=== PATIENT | female | born 1980 | race Caucasian/White ===

== ENCOUNTER 2018-10-18 05:52 | Inpatient (IN) | payer OTHER ==
[2018-10-18] MEDS ORDERED: METHYLERGONOVINE 0.2 MG INJ IM ×2 (07:00→16:30)
[2018-10-18] MEDS ORDERED: PROPOFOL 200 MG INJ (07:00)
[2018-10-18] MEDS ORDERED: OXYTOCIN 30 UNITS/LR 500 ML IV ×3 (07:00→16:30)
[2018-10-18] MEDS ORDERED: MISOPROSTOL 200 MCG TAB PR ×2 (07:00→16:30)
[2018-10-18] MEDS ORDERED: OXYTOCIN 30 UNITS/LR 500 ML BAG IV (07:00)
[2018-10-18] MEDS ORDERED: CARBOPROST 250 MCG INJ IM ×2 (07:00→16:30)
[2018-10-18] MEDS ORDERED: HYDROmorphONE 0.5 MG/0.5 ML SYG IV ×2 (07:30)
[2018-10-18] MEDS ORDERED: DIPHENHYDRAMINE 50 MG INJ IV ×2 (07:30)
[2018-10-18] MEDS ORDERED: HYDROmorphONE 1 MG/5 ML IV SYRINGE IV ×3 (07:30)
[2018-10-18] MEDS ORDERED: FENTAnyl 50 MCG/ML VIAL IV ×2 (07:30)
[2018-10-18] MEDS ORDERED: ONDANSETRON 4 MG INJ IV (07:30)
[2018-10-18] MEDS ORDERED: KETOROLAC 30 MG INJ IV (07:30)
[2018-10-18] MEDS ORDERED: ZOLPIDEM 5 MG TAB PO (07:30)
[2018-10-18] MEDS ORDERED: NALOXONE (0.4 MG/ML) INJ IV (07:30)
[2018-10-18] MEDS ORDERED: CEFAZOLIN 2 GM/50 ML (PMX) 50 ML IVPB (08:00)
[2018-10-18 08:13] LABS: ADD MAN DIFF? NO
[2018-10-18 08:25] LABS: BASOPHILS % 0.4 % (0.0-2.0); EOSINOPHILS # 0.1 10^3/ul (0.0-0.5); EOSINOPHILS % 0.9 % (0.0-7.0); HEMATOCRIT 34.4 % (37.0-47.0); HEMOGLOBIN 11.2 g/dl (12.0-16.0); LYMPHOCYTES # 1.4 10^3/ul (0.8-2.9); MEAN CORPUSCULAR HEMOGLOBIN 30.4 pg (29.0-33.0); MEAN CORPUSCULAR HGB CONC 32.6 g/dl (32.0-37.0); MEAN CORPUSCULAR VOLUME 93.5 fl (82.0-101.0); MEAN PLATELET VOLUME 10.5 fl (7.4-10.4); MONOCYTE # 0.6 10^3/ul (0.3-0.9); MONOCYTES % 7.9 % (0.0-11.0); NEUTROPHIL # 5.9 10^3/ul (1.6-7.5); NEUTROPHILS % 72.7 % (39.0-77.0); PLATELET COUNT 165 10^3/UL (140-415); RED BLOOD COUNT 3.68 10^6/ul (4.20-5.40); RED CELL DISTRIBUTION WIDTH 12.2 % (11.5-14.5)
[2018-10-18 08:25] LABS: WHITE BLOOD COUNT 8.1 10^3/ul (4.8-10.8)
[2018-10-18] MEDS ORDERED: METOCLOPRAMIDE 10 MG INJ IM (08:30)
[2018-10-18 08:45] LABS: INR 0.91; PROTIME 12.3 Sec (11.9-14.9)
[2018-10-18 09:15] LABS: HEPATITIS B SURFACE ANTIGEN NEGATIVE (NEGATIVE)
[2018-10-18] MEDS: LACTATED RINGER'S 1,000 ML IV ×2 (10:04→11:28)
[2018-10-18] MEDS: ONDANSETRON 4 MG INJ IV ×2 (11:01→13:50)
[2018-10-18] MEDS: FAMOTIDINE 20 MG INJ IV (11:03)
[2018-10-18] MEDS: METOCLOPRAMIDE 10 MG INJ IV (11:20)
[2018-10-18] MEDS ORDERED: morphine SULFATE/PF (10 MG/10 ML) INJ (11:30)
[2018-10-18] MEDS: CEFAZOLIN 2 GM/50 ML (PMX) 50 ML IVPB (13:47)
[2018-10-18] MEDS: OXYTOCIN 30 UNITS/LR 500 ML IV ×3 (14:24→23:23)
[2018-10-18] MEDS ORDERED: OXYCODONE/ACETAMINOPHEN (5/325) TAB PO (16:30)
[2018-10-18] MEDS ORDERED: HYDROCODONE/APAP (5/325) TAB PO (16:30)
[2018-10-18] MEDS: CEFAZOLIN 1 GM/50 ML (PMX) 50 ML IVPB (20:32)
[2018-10-18 21:09] LABS: RAPID PLASMA REAGIN NONREACTIVE (NR)
[2018-10-19] MEDS: LACTATED RINGER'S 1,000 ML IV ×2 (03:31→03:42)
[2018-10-19 07:26] LABS: ADD MAN DIFF? NO
[2018-10-19 07:30] LABS: BASOPHILS % 0.1 % (0.0-2.0); EOSINOPHILS % 0.2 % (0.0-7.0); HEMATOCRIT 30.5 % (37.0-47.0); HEMOGLOBIN 10.3 g/dl (12.0-16.0); LYMPHOCYTES # 1.2 10^3/ul (0.8-2.9); LYMPHOCYTES % 8.4 % (15.0-51.0); MEAN CORPUSCULAR HGB CONC 33.8 g/dl (32.0-37.0); MEAN CORPUSCULAR VOLUME 91.9 fl (82.0-101.0); MEAN PLATELET VOLUME 10.8 fl (7.4-10.4); MONOCYTE # 1.4 10^3/ul (0.3-0.9); MONOCYTES % 9.7 % (0.0-11.0); NEUTROPHIL # 11.6 10^3/ul (1.6-7.5); NEUTROPHILS % 80.9 % (39.0-77.0); PLATELET COUNT 179 10^3/UL (140-415); RED BLOOD COUNT 3.32 10^6/ul (4.20-5.40)
[2018-10-19 07:30] LABS: WHITE BLOOD COUNT 14.4 10^3/ul (4.8-10.8)
[2018-10-19] MEDS: KETOROLAC 30 MG INJ IV (07:59)
[2018-10-19] MEDS: LANOLIN HPA 1 PKT TOP (08:16)
[2018-10-19] MEDS: SENNA/DOCUSATE NA (8.6MG/50MG) TAB PO ×2 (08:16→21:32)
[2018-10-19] MEDS: HYDROCODONE/APAP (5/325) TAB PO ×3 (11:56→21:32)
[2018-10-19] MEDS: IBUPROFEN 600 MG TAB PO ×2 (12:00→18:41)
[2018-10-19 23:59] LABS: RHOGAM PROFILE 1 1
[2018-10-20] MEDS: IBUPROFEN 600 MG TAB PO ×3 (00:23→11:21)
[2018-10-20] MEDS: HYDROCODONE/APAP (5/325) TAB PO ×2 (01:42→16:00)
[2018-10-20] MEDS: OXYCODONE/ACETAMINOPHEN (5/325) TAB PO (11:22)
[2018-10-20] MEDS: SENNA/DOCUSATE NA (8.6MG/50MG) TAB PO (11:22)
[2018-10-20] MEDS: DIPHTH/TET/ACEL PERTUSS (ADULT) 0.5 ML VIAL IM* (11:59)
[2018-10-20] MEDS: NA PHOSPHATE/BIPHOS 133 ML ENEMA PR (15:22)
== END 2018-10-20 19:14 | disposition home or self-care (01) | DRG 785 ==
LOC: L-D 05:52 → PP1 16:09
PROVIDERS: Obstetrics & Gynecology
PROC: 10D00Z1 Extraction of Products of Conception, Low, Open Approach (ICD-10-PCS; principal; 2018-10-18 08:30)
PROC: 0UB70ZZ Excision of Bilateral Fallopian Tubes, Open Approach (ICD-10-PCS; 2018-10-18 08:30)
DX: O34.219 Maternal care for unspecified type scar from previous cesarean delivery (principal); Z3A.39 39 weeks gestation of pregnancy; Z37.0 Single live birth; Z30.2 Encounter for sterilization
CPT/HCPCS: 85025; 85610; 85730; 86592; 86850; 86885; 86900; 86901; 87340; 88302